=== PATIENT | male | born 1990 | race Hispanic/Latino ===

== ENCOUNTER 2021-09-17 18:27 | Emergency (ER) | payer SELFPAY ==
[2021-09-17] MEDS ORDERED: Lidocaine 1% (PF) 30 ML VIAL ONE (19:54)
[2021-09-17] MEDS ORDERED: Bacitracin 1 PK ONE (20:55)
== END 2021-09-17 19:19 | disposition home or self-care (01) ==
LOC: CSHERS 18:27
DX: L03.031 Cellulitis of right toe (principal); L60.0 Ingrowing nail; K21.9 Gastro-esophageal reflux disease without esophagitis; Z87.891 Personal history of nicotine dependence
CPT/HCPCS: 11750; J2001

== ENCOUNTER 2022-10-28 19:34 | Emergency (ER) | payer SELFPAY | END 2022-10-28 20:55 | disposition home or self-care (01) | LOC: CSHERS 19:34 | DX: S93.401A Sprain of unspecified ligament of right ankle, initial encounter (principal); X50.1XXA Overexertion from prolonged static or awkward postures, initial encounter ==